=== PATIENT | female | born 1995 | race Caucasian/White ===

== ENCOUNTER → 2024-12-04 | Outpatient (REF) | payer OTHER | LOC: M LAB REF 15:45 | PROVIDERS: ATTEND Physician Assistant | DX: B34.9 Viral infection, unspecified (principal) ==

== ENCOUNTER 2024-12-16 06:12 | Observation (INO) | payer OTHER ==
[2024-12-16] VITALS (7 sets, daily range): BP systolic 110–123; BP diastolic 63–78; TEMP 97.5–97.9; O2SAT 96–100
[~2024-12-16] VITALS: Ht 167.6 cm; Wt 76.7 kg
[~2024-12-16 06:12] MED LIST: AMOX250C3 PO; IBUP200C29 PO
[2024-12-16] MEDS ORDERED: LIDOCAINE 2% 100MG/5ML SDV (FOR ANES.) As Ordered ONE (07:17)
[2024-12-16] MEDS ORDERED: propofoL 200 MG/20 ML VIAL As Ordered ONE (07:17)
[2024-12-16] MEDS ORDERED: ROCURONIUM BROMIDE 50MG/5ML VIAL As Ordered ONE (07:17)
[2024-12-16] MEDS ORDERED: fentaNYL 250 MCG/5 ML INJECTION As Ordered ONE (07:17)
[2024-12-16] MEDS ORDERED: MIDAZOLAM INJ 2MG/2ML VIAL As Ordered ONE (07:18)
[2024-12-16] MEDS: LR 1,000 ML IV SCH ×2 (07:33→14:59)
[2024-12-16] MEDS: SCOPOLAMINE 1MG TRANSDERMAL PATCH TOP ONE (07:35)
[2024-12-16] MEDS: ceFAZolin SOD 2 GM IV ONCE IV ONE (07:58)
[2024-12-16] MEDS ORDERED: ACETAMINOPHEN 1000MG/100ML IV BAG As Ordered ONE (08:00)
[2024-12-16] MEDS: HEPARIN SOD (PORCINE) 5000UNITS/ML 1ML VIAL/SYRINGE SQ ONE (08:00)
[2024-12-16] MEDS ORDERED: HYDROmorphone HCL 2MG/ML 1ML VIAL As Ordered ONE (08:01)
[2024-12-16] MEDS: GENTAMICIN SULF 80MG/2ML VIAL As Ordered ONE (08:17)
[2024-12-16] MEDS: BUPivacaine LIPOSOME/PF 266MG 20ML VIAL (13.3MG/ML)(EXPAREL) As Ordered ONE (08:30)
[2024-12-16] MEDS ORDERED: ONDANSETRON 4MG 2ML VIAL As Ordered ONE (10:21)
[2024-12-16] MEDS ORDERED: KETOROLAC 30 MG/ML 1ML VIAL As Ordered ONE (10:21)
[2024-12-16] MEDS ORDERED: SUGAMMADEX SODIUM 500 MG/5 ML VIAL (BRIDION) As Ordered ONE (10:22)
[2024-12-16] MEDS ORDERED: METOCLOPRAMIDE INJ 10MG/2ML VIAL As Ordered ONE (10:22)
[2024-12-16] MEDS ORDERED: ACETAMINOPHEN 325 MG TAB PO PRN (12:15)
[2024-12-16] MEDS ORDERED: oxyCODONE 5MG TAB PO PRN (12:20)
[2024-12-16] MEDS ORDERED: ONDANSETRON 4MG 2ML VIAL IV PRN (12:20)
[2024-12-16] MEDS ORDERED: fentaNYL 100 MCG/2 ML INJECTION IV PRN (12:20)
[2024-12-16] MEDS: PROMETHAZINE 25MG/ML 1ML VIAL IV PRN ×2 (12:28→19:33)
[2024-12-16] MEDS: diphenhydrAMINE 50MG/ML VIAL IV PRN (13:45)
[2024-12-16] MEDS ORDERED: HOME MED LIST COMPLETE! XX SCH (15:15)
[2024-12-16] MEDS: ceFAZolin SODIUM 2 GM in DEXTROSE 5% (D5W) ADV/MINI-BAG 50 ML IV SCH (16:55)
[2024-12-16] MEDS: traMADol 50 MG TAB PO PRN (16:56)
[2024-12-16] MEDS: ONDANSETRON 4MG 2ML VIAL IV PRN (21:48)
[2024-12-16] MEDS: PERCOCET 5MG/325MG TAB PO PRN (21:49)
[2024-12-17] VITALS: BP 108/62; TEMP 98.1; O2SAT 96
[2024-12-17 04:00] VITALS: BP 109/64; TEMP 97.9; O2SAT 97
[2024-12-17 08:00] VITALS: BP 105/69; TEMP 97.7; O2SAT 100
[2024-12-17] MEDS ORDERED: TRAM50TA2 PO (11:58)
== END 2024-12-17 13:30 | disposition home or self-care (01) ==
LOC: M SDC 06:12 → UNDOADMOB 06:13 → M ED INP 06:13 → M RR INP 06:13 → M MS5PR 14:45
PROVIDERS: ADMIT Plastic Surgery Surgery of the Hand; ATTEND Plastic Surgery Surgery of the Hand
DX: N62 Hypertrophy of breast (principal); R11.0 Nausea; M54.6 Pain in thoracic spine; M54.2 Cervicalgia
CPT/HCPCS: 19318; 88304; 96374; 96375; 96376; J0131; J0665; J0666; J0690; J1100; J1171; J1200; J1580; J2250; J2405; J2550; J2765; J3010

== ENCOUNTER 2025-01-14 01:58 | Emergency (ER) | payer OTHER ==
[~2025-01-14] VITALS: Ht 167.6 cm; Wt 77.9 kg
[~2025-01-14 01:58] MED LIST changes: +TRAM50TA2 PO
[2025-01-14 02:23] VITALS: BP 123/76; TEMP 97.5; O2SAT 99
== END 2025-01-14 03:02 | disposition left against medical advice (07) ==
LOC: M ED 01:58
DX: Z53.21 Procedure and treatment not carried out due to patient leaving prior to being seen by health care provider (principal)